=== PATIENT | male | born 1995 | race African-American/Black ===

== ENCOUNTER 2018-05-14 13:01 | Emergency (ER) | payer MEDICAID ==
[~2018-05-14] VITALS: Ht 177.8 cm; Wt 61.3 kg
[2018-05-14] MEDS ORDERED: IBUPROFEN 600MG TABLET PO STA (17:06)
[2018-05-14] MEDS ORDERED: BACITRACIN ZINC OINT UDPKT TOP ONE (17:15)
[2018-05-14] MEDS ORDERED: LIDOCAINE HCL/PF 1% 10 MG/ML 5ML VIAL IJ ONE (17:15)
[2018-05-14 17:42] VITALS: BP 123/81
== END 2018-05-14 18:46 | disposition home or self-care (01) ==
LOC: ER 14:00
DX: L02.414 Cutaneous abscess of left upper limb (principal); F12.10 Cannabis abuse, uncomplicated
CPT/HCPCS: 73080; 99284; J3490

== ENCOUNTER 2018-05-17 17:06 | Emergency (ER) | payer MEDICAID | END 2018-05-17 21:30 | disposition left against medical advice (07) | LOC: ER 21:00 | DX: Z53.21 Procedure and treatment not carried out due to patient leaving prior to being seen by health care provider (principal) ==

== ENCOUNTER 2018-05-18 13:03 | Emergency (ER) | payer MEDICAID ==
[~2018-05-18] VITALS: Ht 172.7 cm; Wt 61.0 kg
[2018-05-18 13:57] VITALS: BP 122/63
== END 2018-05-18 20:00 | disposition left against medical advice (07) ==
LOC: ER 13:03
DX: Z48.00 Encounter for change or removal of nonsurgical wound dressing (principal); Z53.21 Procedure and treatment not carried out due to patient leaving prior to being seen by health care provider